=== PATIENT | female | born 1950 | race Caucasian/White ===

== ENCOUNTER 2016-09-24 09:20 | Day surgery (SDC) | payer MEDICARE ==
[~2016-09-24] VITALS: Ht 160 cm; Wt 68.0 kg
[~2016-09-24 09:20] MED LIST: ACET325T51 PO; ASPI-973 PO; BIOT5CAP9 PO; CALC117719 PO; CHOL200025 PO; CYCL10TA9 PO; HYDR-3605 PO; LAMO100T PO; LORA0.5T PO; OXYC-465 PO; PERP2TAB5 PO; PRAZ2CAP2 PO; RES15 PO
[2016-09-24] MEDS ORDERED: Bupivacaine-MPF 0.25% 30 mL Inj IV ONE (09:21)
[2016-09-24] MEDS ORDERED: MethylprednisoLONE Depot 40 mg/mL Inj IM ONE (09:21)
[2016-09-24 09:51] VITALS: BP 134/77; PULSE 89; RESP 19; O2SAT 95
--- NOTE | 2016-09-24 14:59 | PCM.PROC ---
Procedure Note Date of Service: September 24, 2016 Pre Procedure Diagnosis: PROCEDURE: LEFT Sacroiliac joint injection (fluoroscopically guided) PRE-PROCEDURE DIAGNOSIS: Sacroiliitis POST-PROCEDURE DIAGNOSIS: same INDICATION: 66-year-old patient with posterior hip pain, suggestive of sacroiliitis ASA / ANTICOAGULATION: No asa x 7 days PERFORMED BY: Pan Pablo MD DESCRIPTION OF PROCEDURE: Patient was met in the holding area. Consent was signed, site was confirmed and all questions were answered. Patient was taken to the procedure suite and placed prone on the procedure table. Local anesthesia with 1% lidocaine was injected into the epidermidis and dermis. A 22-gauge Quincke spinal needle was advanced towards the sacroiliac joint after visualization was optimized fluoroscopically in the AP view. Proper positioning in the joint was confirmed by injecting contrast. We then took a lateral view to reconfirm proper positioning in the sacroiliac joint. 80mg depomedrol with 2 cc of 0.25% Bupivicaine injected without difficulty. ANESTHESIA: Local. EBL: None. No Blood Products Used COMPLICATIONS: None SPECIMENS: None POST-PROCEDURE DISPOSITION: Patient tolerated the procedure well was returned to the holding area in stable condition. They were discharged home when all discharge criteria were met. Fluro time: See Radiology Report Evaluation/Physical Exam before discharge revealed: DISCHARGE MEDICATIONS: none FOLLOW UP: Trochanteric bursa injection pending Pan Pablo MD * Pain Management * Anesthesiology [facility] [place] Pan Pablo MD September 24, 2016 14:59
== END 2016-09-24 23:59 | disposition home or self-care (01) ==
LOC: END 09:20
PROVIDERS: ATTEND Anesthesiology Pain Medicine
DX: M46.1 Sacroiliitis, not elsewhere classified (principal)
CPT/HCPCS: G0260; J1030